=== PATIENT | male | born 1960 | race Caucasian/White ===

== ENCOUNTER 2018-01-11 11:45 | Emergency (ER) | payer MEDICAID ==
[~2018-01-11] VITALS: Ht 180.3 cm; Wt 71.8 kg
[~2018-01-11 11:45] MED LIST: HYDR-569 PO; IBUP-2264 PO
[2018-01-11 11:51] VITALS: BP 158/100
[2018-01-11] MEDS ORDERED: DOXY100C43 PO (12:11)
[2018-01-11] MEDS ORDERED: KEN0.1O TP (12:11)
== END 2018-01-11 12:21 | disposition home or self-care (01) ==
LOC: ER 11:46
DX: R21 Rash and other nonspecific skin eruption (principal); G89.29 Other chronic pain; F17.210 Nicotine dependence, cigarettes, uncomplicated; F10.10 Alcohol abuse, uncomplicated
CPT/HCPCS: 99283

== ENCOUNTER 2018-01-14 14:10 | Emergency (ER) | payer MEDICAID ==
[~2018-01-14] VITALS: Ht 180.3 cm; Wt 73.2 kg
[~2018-01-14 14:10] MED LIST changes: +DOXY100C43 PO; +KEN0.1O TP
[2018-01-14 14:17] VITALS: BP 130/85
[2018-01-14] MEDS ORDERED: HYDR28CR14 TOP (14:22)
== END 2018-01-14 14:33 | disposition home or self-care (01) ==
LOC: ER 14:10
DX: L23.7 Allergic contact dermatitis due to plants, except food (principal); G89.29 Other chronic pain; M54.9 Dorsalgia, unspecified; F10.10 Alcohol abuse, uncomplicated
CPT/HCPCS: 99282